=== PATIENT | male | born 1985 | race Caucasian/White ===

== ENCOUNTER 2016-12-01 14:28 | Emergency (ER) | payer BC ==
[~2016-12-01] VITALS: Ht 180.3 cm; Wt 72.6 kg
[2016-12-01 14:40] VITALS: BP_SYST 137
[2016-12-01] MEDS ORDERED: KETOROLAC TROMETHAMINE 60 MG/2 ML VIAL IM ONE (17:00)
[2016-12-01 17:33] VITALS: BP_SYST 132
== END 2016-12-01 17:33 | disposition home or self-care (01) ==
LOC: SED 14:28
DX: M25.522 Pain in left elbow (principal); M79.662 Pain in left lower leg; M79.645 Pain in left finger(s); M79.672 Pain in left foot; M79.671 Pain in right foot; V22.4XXA Motorcycle driver injured in collision with two- or three-wheeled motor vehicle in traffic accident, initial encounter; Y93.55 Activity, bike riding; Y92.488 Other paved roadways as the place of occurrence of the external cause; Y99.8 Other external cause status
CPT/HCPCS: 73080; 73110; 73130; 73590; 73630; 96372; 99284; J1885